=== PATIENT | male | born 1985 | race Caucasian/White ===

== ENCOUNTER 2019-03-22 19:48 | Emergency (ER) | payer OTHER ==
[2019-03-22] MEDS ORDERED: TRANEXAMIC ACID 1,000 MG in SODIUM CHLORIDE 0.9% 100 ML IV STA (20:03)
[2019-03-22] MEDS ORDERED: TRANEXAMIC ACID 1,000 MG in SODIUM CHLORIDE 0.9% 250 ML IV ONE ×2 (20:03→21:08)
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
[2019-03-22] MEDS ORDERED: DIPH,PERTUS(ACELL)TETVAC-LF 0.5 ML VIAL IM ONE (20:28)
[2019-03-22 20:30] LABS: Basophils # (A) 0.1 k/uL (0-0.2); Basophils % (A) 1 %; Eosinophils # (A) 0.1 k/uL (0-0.7); Eosinophils % (A) 0 %; HCT 39.6 % (39.0-53.0); HGB 14.8 gm/dL (13.0-17.5); Lymphocytes % (A) 8 %; MCH 31.2 pg (25.0-35.0); MCHC 37.3 g/dL (31.0-37.0); MCV 83.6 fL (80.0-100.0); Mean Platelet Volume 6.9; Monocytes # (A) 1.6 k/uL (0-1.0); Monocytes % (A) 6 %; Neutrophils % (A) 85 %; Platelet Count 240 k/uL (150-450); RBC 4.73 m/uL (4.30-5.90); RDW 13.6 % (11.5-15.5)
[2019-03-22 20:32] LABS: ALT 32 U/L (21-72); AST 100 U/L (17-59); African American GFR (CKD) 79 (>60 ml/min/1.73 sqM); Albumin 3.5 g/dL (3.5-5.0); Alcohol <10 mg/dL; Alkaline Phosphatase 87 U/L (38-126); Amylase 38 U/L (30-110); Anion Gap 10 mmol/L; Blood Urea Nitrogen 23 mg/dL (9-20); Calcium 8.1 mg/dL (8.4-10.2); Carbon Dioxide 19 mmol/L (22-30); Chloride 110 mmol/L (98-107); Glucose 150 mg/dL (74-99); Non-African American GFR(CKD) 68 (>60 ml/min/1.73 sqM); Potassium 4.7 mmol/L (3.5-5.1); Sodium 139 mmol/L (137-145); Total Bilirubin 1.2 mg/dL (0.2-1.3); Total Protein 6.1 g/dL (6.3-8.2)
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
[2019-03-22 20:41] LABS: Prothrombin Time 10.9 sec (9.0-12.0)
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
[2019-03-22 20:44] LABS: Creatine Kinase 1405 U/L (55-170)
[2019-03-22 20:45] LABS: Troponin I <0.012 ng/mL (0.000-0.034)
[2019-03-22 20:49] LABS: Partial Thromboplastin Time 21.2 sec (22.0-30.0)
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
[2019-03-22] MEDS ORDERED: ACETAMINOPHEN IV (For NPO) 1,000 MG in EMPTY BAG 1 BAG IVPB STA (21:08)
[2019-03-22] MEDS ORDERED: ONDANSETRON 4 MG/2 ML VIAL IVP STA (21:08)
[2019-03-22 21:31] VITALS: PULSE 110
[2019-03-22 21:52] VITALS: BP 115/95; RESP 20; TEMP 99.2
== END 2019-03-22 21:57 | disposition short-term general hospital (02) ==
LOC: EC 19:48
DX: S36.039A Unspecified laceration of spleen, initial encounter (principal); S32.402A Unspecified fracture of left acetabulum, initial encounter for closed fracture; S20.219A Contusion of unspecified front wall of thorax, initial encounter; S09.90XA Unspecified injury of head, initial encounter; M25.562 Pain in left knee; R00.0 Tachycardia, unspecified; R06.2 Wheezing; R06.89 Other abnormalities of breathing; Z23 Encounter for immunization; V43.53XA Car driver injured in collision with pick-up truck in traffic accident, initial encounter; Y92.410 Unspecified street and highway as the place of occurrence of the external cause; Z53.8 Procedure and treatment not carried out for other reasons
CPT/HCPCS: 36415; 86900; 86901; 80053; 82150; 82550; 82553; 83605; 83690; 84484; 85025; 85610; 85730; 86850; 86920; 80320; 72170; 73501; 71045; 72125; 70486; 70450; 71260; 74177; 90715; 99291; 96365; 96375; 96366; 90471; P9016; J2405; Q9967; 96376

== ENCOUNTER 2023-04-08 19:24 | Inpatient (IN) | payer OTHER ==
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
[2023-04-08] MEDS ORDERED: NALOXONE 0.4 MG/ML 1 ML VIAL IV PRN (20:27)
[2023-04-08] MEDS ORDERED: ACETAMINOPHEN TAB 325 MG TAB PO PRN (21:00)
--- NOTE | 2023-04-09 02:09 | P.CNPUL ---
History of Present Illness Consult date: 04/09/23 Requesting physician: Michelle White Reason for consult: pneumothorax Chief complaint: shortness of breath History of present illness: I am seeing the patient in consultation today 04/09/2023 after he was transferred from [facility] last night for acute left-sided spontaneous pneumothorax. Patient is a 37-year-old white male with limited past medical history. He does see a Dr. Chambers outpatient. Over the last 2-3 weeks the patient has has had progressively worsening shortness of breath. Denies any trauma. Denies any history of lung disease. He denies smoking history. Denies any prior history of prior pneumothorax. Denies any chest pain. Denies any recent illnesses. He did see his primary care provider on Wednesday for the shortness of breath and followed up again yesterday. Chest x-ray was performed. The patient was directed to [facility], and was discovered to have a moderate sized left-sided pneumothorax. He is status/post left-sided chest tube insertion at outside facility. Patient was then transferred to [facility]. He is currently in the emergency room. Small bore chest tube is currently connected to an atrium and to suction and -20 cm H2O. No air leak. No drainage output. Most recent chest x-ray available was scanned in from [facility], it was prior to chest tube placement. There is a small to moderate size left-sided pneumothorax. No mediastinal shift or tracheal deviation. Patient is currently lying in bed, on room air, he is fairly comfortable. Vital signs are stable. Review of Systems REVIEW OF SYSTEMS: CONSTITUTIONAL: Denies any recent significant weight loss or weight gain. EYES: Denies change in vision. EARS, NOSE, MOUTH, THROAT: Denies headaches, denies sore throat. CARDIOVASCULAR: Denies chest pain, palpitations or syncopal episodes. RESPIRATORY: Denies cough, congestion or hemoptysis. Admits shortness of breath GASTROINTESTINAL: Denies change in appetite, abdominal pain, nausea and vomiting, or diarrhea GENITOURINARY: Denies hematuria, denies infections. MUSKULOSKELETAL: Denies pain, denies swelling. INTEGUMENTARY: Denies rash, denies eczema. NEUROLOGICAL: Denies recent memory loss, no recent seizure activity. PSYCHIATRIC: Denies anxiety, denies depression. HEMATOLOGIC/LYMPHATIC: Denies anemia, denies enlarged lymph node Past Medical History Past Medical History: No Reported History History of Any Multi-Drug Resistant Organisms: None Reported Additional Past Surgical History / Comment(s): lt hip replacement, "nerve" surgery. Past Psychological History: Depression Smoking Status: Never smoker Past Alcohol Use History: Occasional Past Drug Use History: None Reported Medications and Allergies Home Medications Medication Instructions Recorded Confirmed Type Albuterol Inhaler [Ventolin Hfa 2 puff INHALATION RT-Q6H PRN 04/08/23 04/08/23 History Inhaler] FLUoxetine HCL [PROzac] 20 mg PO DAILY 04/08/23 04/08/23 History predniSONE [Deltasone] See Taper PO DIRECTED 04/08/23 04/08/23 History Allergies Allergy/AdvReac Type Severity Reaction Status Date / Time No Known Allergies Allergy Verified 04/08/23 20:29 Physical Exam Vitals: Vital Signs Temp Pulse Resp BP Pulse Ox 04/08/23 22:34 81 20 141/80 96 04/08/23 20:03 73 20 153/82 97 04/08/23 19:30 98.2 F 67 18 137/74 97 Intake and Output 04/08/23 04/08/23 04/09/23 14:59 22:59 06:59 Other: Weight 124.738 kg GENERAL EXAM: Alert, 37-year-old white male, obese , comfortable in no apparent distress. HEAD: Normocephalic and atraumatic EYES: Normal reaction of pupils, equal size. NOSE: Clear with pink turbinates. THROAT: No erythema or exudates. NECK: No masses, no JVD. CHEST: No chest wall deformity. Left-sided chest tube is connected to a TRAM and suction at -20 cm H2O. No air leak LUNGS: Equal air entry with no crackles, wheeze, rhonchi or dullness. On room air. No conversational dyspnea or accessory muscle use.. CVS: S1 and S2 normal with no audible murmur, regular rhythm. No extra heart sounds ABDOMEN: No hepatosplenomegaly, active bowel sounds, no guarding or rigidity. SPINE: No scoliosis or deformity SKIN: No rashes CENTRAL NERVOUS SYSTEM: No focal deficits, tone is normal in all 4 extremities. EXTREMITIES: There is no peripheral edema, clubbing, or cyanosis. Peripheral pulses are intact. Results - Laboratory Findings CBC and BMP: 04/09/23 05:44 04/09/23 05:44 - Diagnostic Findings Chest x-ray: image reviewed Assessment and Plan Assessment: Acute spontaneous left-sided pneumothorax, status/post left-sided chest tube placement at outside facility Acute dyspnea, secondary to above Morbid obesity, with a BMI of 45.8 kg/m Plan: Patient is currently on room air, in no acute distress. Only chest x-ray available shows a [id number] size left-sided pneumothorax. No me diastinal shift or tracheal deviation. I do not see any radiopaque chest tube markings on this image. I did confirm that this was scanned in from [facility] prior to chest tube placement. We will obtain repeat chest x-ray. The tube itself appears to be secured on the left chest wall. Chest tube is connected to an atrium and suction at -20 cm H2O. no air leak. We will give this patient an incentive spirometer. Pain is reportedly well controlled. Labs are pending. We will continue to follow. I have personally seen and examined the patient, performed the documentation and the assessment and plan as written. Number of minutes spent on the visit:20 With the DIRECT MARKETING COORDINATOR. The patient was seen and evaluated. The patient is doing extremely well. He is on room air oxygen. No issues with pain. I do not see any air leak and the pleural VAC. I put his to to waterseal. He has a pigtail catheter that was inserted in an outside hospital. He is doing extremely well. He is using the incentive spirometer. He is a nonsmoker. Chest x-ray was reviewed and there is no evidence of any pneumothorax. Repeat chest x-ray tomorrow and further recommendations are to follow. This is his first and only episode. The patient was having significant cough and which probably contributed to his pneumothorax. This is a spontaneous pneumothorax. Evaluation was done in more than 30 minutes. Time with Patient: Greater than 30
--- NOTE | 2023-04-09 02:32 | P.HPIM ---
History of Present Illness H&P Date: 04/08/23 Patient is a 37-year-old male with no known PMH who presented to the emergency room was transferred from [facility] where he had presented for shortness of breath. Patient reports he had sudden onset of shortness of breath 3 weeks ago which had persisted. 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 He was prescribed an albuterol inhaler for suspected asthma by his PCP with no relief. CT chest without contrast was performed showing a 40% left sided pneumothorax with right lung being unremarkable. The patient had a chest tube placed with subsequent chest x-ray showing minimal residual left sided apical pneumothorax. He was subse quently transferred to [facility] emergency department for further management. The patient reports feeling essentially at his baseline at the time of interview. Patient denied recent trauma, falls, or travel. Denied any additional shortness of breath, chest discomfort, fever, chills, cough, nausea, vomiting, abdominal pain, diarrhea. Patient denied any personal or family history of pneumothorax. The patient's laboratory evaluation from [facility] was reviewed with WBC count 8.7, hemoglobin 16.3, platelet count 192, sodium 138, potassium 4.2, BUN 21, creatinine 0.9, glucose 140, d-dimer 0.25. ED documentation reviewed and case discussed with ED provider. Review of systems: Pertinent positives and negatives as discussed in HPI, a complete review of systems was performed and all other systems are negative. Physical examination: Vital signs reviewed General: non toxic, no distress, appears at stated age, morbidly obese Derm: no unusual rashes/lesions, warm Head: atraumatic, normocephalic, symmetric Eyes: EOMI, no lid lag, anicteric sclera, pupils equal round reactive to light ENT: Nose and ears atraumatic Neck: No cervical lymphadenopathy, trachea midline, supple Mouth: no lip lesion, mucus membranes moist Cardiovascular: S1S2 reg, no murmur, positive dorsalis pedis pulse bilateral, no edema Lungs: CTA bilateral, no rhonchi, no rales, no accessory muscle use, left-sided chest tube in place Abdominal: soft, nontender to palpation, no guarding Ext: muscle strength 5 out of 5 in all 4 extremities grossly, no gross muscle atrophy, no contractures, Neuro: CN II-XI grossly intact, no gross focal neuro deficits Psych: Alert, oriented, appropriate affect Assessment: Spontaneous pneumothorax status post left-sided chest tube placement Hyperglycemia Imaging: CT chest without contrast was performed showing a 40% left sided pneumothorax with right lung being unremarkable. Chest x-ray following chest tube placement revealed minimal residual pneumothorax. Data Review: The patient's laboratory evaluation from [facility] was reviewed with WBC count 8.7, hemoglobin 16.3, platelet count 192, sodium 138, potassium 4.2, BUN 21, creatinine 0.9, glucose 140, d-dimer 0.25. Plan: Pulmonary consulted Check A1c levels Repeat chest x-ray ordered Cardiac monitoring DVT prophylaxis: Lovenox subcu The patient is admitted with an anticipated less than 2 midnight stay for evaluation of pneumothorax CODE STATUS: Full Code Discussed with: Patient Anticipated discharge place: Home Past Medical History Past Medical History: No Reported History History of Any Multi-Drug Resistant Organisms: None Reported Additional Past Surgical History / Comment(s): lt hip replacement, "nerve" s urgery. Past Psychological History: Depression Smoking Status: Never smoker Past Alcohol Use History: Occasional Past Drug Use History: None Reported Medications and Allergies Home Medications Medication Instructions Recorded Confirmed Type Albuterol Inhaler [Ventolin Hfa 2 puff INHALATION RT-Q6H PRN 04/08/23 04/08/23 History Inhaler] FLUoxetine HCL [PROzac] 20 mg PO DAILY 04/08/23 04/08/23 History predniSONE [Deltasone] See Taper PO DIRECTED 04/08/23 04/08/23 History Allergies Allergy/AdvReac Type Severity Reaction Status Date / Time No Known Allergies Allergy Verified 04/08/23 20:29 Physical Exam Vitals: Vital Signs Temp Pulse Resp BP Pulse Ox 04/08/23 22:34 81 20 141/80 96 04/08/23 20:03 73 20 153/82 97 04/08/23 19:30 98.2 F 67 18 137/74 97 Intake and Output 04/08/23 04/08/23 04/09/23 14:59 22:59 06:59 Other: Weight 124.738 kg
[2023-04-09 06:09] LABS: Basophils % (A) 0 %; Eosinophils # (A) 0.1 k/uL (0-0.7); Eosinophils % (A) 1 %; HCT 44.4 % (39.0-53.0); HGB 15.2 gm/dL (13.0-17.5); Lymphocytes # (A) 3.4 k/uL (1.0-4.8); Lymphocytes % (A) 33 %; MCH 29.1 pg (25.0-35.0); MCHC 34.1 g/dL (31.0-37.0); MCV 85.4 fL (80.0-100.0); Mean Platelet Volume 8.3; Monocytes # (A) 0.8 k/uL (0-1.0); Monocytes % (A) 7 %; Neutrophils # (A) 5.9 k/uL (1.3-7.7); Neutrophils % (A) 57 %; Platelet Count 171 k/uL (150-450); RBC 5.21 m/uL (4.30-5.90); RDW 13.5 % (11.5-15.5); WBC 10.3 k/uL (3.8-10.6)
[2023-04-09 06:22] LABS: African American GFR (CKD) >90 (>60 ml/min/1.73 sqM); Anion Gap 8 mmol/L; Blood Urea Nitrogen 20 mg/dL (9-20); Calcium 8.6 mg/dL (8.4-10.2); Carbon Dioxide 25 mmol/L (22-30); Chloride 107 mmol/L (98-107); Glucose 88 mg/dL (74-99); Non-African American GFR(CKD) >90 (>60 ml/min/1.73 sqM); Sodium 140 mmol/L (137-145)
--- NOTE | 2023-04-09 08:48 | XR ---
EXAMINATION TYPE: XR chest 1V portable DATE OF EXAM: 04/09/2023 Comparison: 04/08/2023 Clinical History: 37-year-old male left sided pneumothorax Findings: Heart upper limits of normal in size. Aorta and pulmonary vasculature within normal limits. Some stra ndy atelectasis in the lower lungs. No appreciable pneumothorax on the current study. Impression: The previous left pneumothorax appears to have resolved. There are some hypoventilatory changes prese nt.
[2023-04-09] MEDS: ENOXAPARIN 40 MG/0.4 ML SYRINGE SQ SCH (09:12)
[2023-04-09] MEDS ORDERED: ALBUTEROL NEBULIZED 2.5 MG/3 ML INHALATION PRN (18:14)
--- NOTE | 2023-04-09 18:16 | P.PN ---
Subjective Progress Note Date: 04/09/23 Hospital course: Patient is a pleasant 37-year-old male with a past medical history of asthma and depression. He was transferred to our facility from [facility] where he initially presented for shortness of breath. At [facility] patient underwent a CT chest which reportedly revealed a 40% left-sided pneumothorax. A chest tube was placed and a repeat check echo a completed reportedly showing minimal residual left-sided apical pneumothorax. Patient was then transferred via EMS to our facility for further management including admission and evaluation by public speaking professor. Upon arrival to our facility, patient underwent full evaluation. Vital signs completed showing blood pressure 137/74, heart rate 67, respiratory rate 18, temp 98.2F, SpO2 is 97% on room air. Patient was admitted under our services with consultation to pulmonology. Physical exam: Vital signs reviewed and stable. General: Nontoxic, no distress and appears stated age. Derm: Skin warm and dry, normal coloration for ethnicity. Head: Atraumatic, normocephalic and symmetric. Eyes: EOMs intact, no lid lag, and anicteric sclera Mouth: no lip lesions, mucus membranes moist Cardiovascular: regular rate and rhythm with normal S1S2, no murmur, positive posterior tibial pulses bilaterally, and cap refill < 2 seconds. Lungs: Respirations even, regular, and unlabored on room air. Lungs CTA bilaterally, no rhonchi, no rales, no wheezing, and no accessory muscle usage. Left-sided chest tube in place. Abdominal: soft, nontender to palpation, no guarding, no appreciable organomegaly Ext: ROM intact. No gross muscle atrophy, no edema, no contractures Neuro: Speech clear, face symmetrical and CN II-XII grossly intact with no noted focal neuro deficits Psych: Alert and oriented to person, place, time, and situation. Appropriate and pleasant affect. Assessment and Plan of Care: Spontaneous pneumothorax Asthma without acute exacerbation Depression -Pulmonology following, reviewed documentation in chart. -Patient to remain on continuous telemetry monitoring with close monitoring of vital signs. -Home medications reviewed and reordered. Patient to continue with albuterol inhaler 2 puffs every 6 hours as needed for wheezing and/or shortness of breath along with Prozac 20 mg daily. -Repeat chest x-ray. Imaging reviewed: Repeat chest x-ray completed this morning reviewed, radiology report showing resolution of previous left pneumothorax. Labs completed and reviewed. CBC and BMP were unremarkable. CODE STATUS: Full code DVT prophylaxis: Lovenox Anticipated discharge date: Likely 24-[address]: Home Patient was seen independently by Nurse Pracitioner. This document was prepared using [employer] dictation software. Please allow for errors in mobile ui developer, while rare they do occur. Ashwin Cloud, RESIDENCY PROGRAM COORDINATOR rendered care for this patient independently, reviewed the findings and plan as documented in the note above. I did not physically speak with or examine the patient on this date. Objective - Vital Signs Vital signs: Vital Signs Temp 97.6 F 04/09/23 06:07 Pulse 53 L 04/09/23 06:07 Resp 15 04/09/23 06:07 BP 140/83 04/09/23 06:07 Pulse Ox 98 04/09/23 06:07 FiO2 Intake & Output 04/08/23 04/09/23 04/09/23 18:59 06:59 18:59 Weight 124.738 kg - Labs CBC & Chem 7: 04/09/23 05:44 04/09/23 05:44
[2023-04-10 02:57] VITALS: TEMP 97.6
[2023-04-10 07:32] VITALS: BP 145/92; PULSE 63; RESP 14
--- NOTE | 2023-04-10 07:57 | XR ---
EXAMINATION TYPE: XR chest 1V DATE OF EXAM: 04/10/2023 COMPARISON: 04/09/2023 HISTORY: 37-year-old male pneumothorax TECHNIQUE: Single frontal view of the chest is obtained. FINDINGS: Heart upper limits of normal in size. Hazy densities related to overlying soft tissue and portable te chnique. No recurrence of the patient's previous left-sided pneumothorax. No consolidation or pleural effusion. IMPRESSION: No recurrence of the patient's previous left-sided pneumothorax.
[2023-04-10] MEDS: ENOXAPARIN 40 MG/0.4 ML SYRINGE SQ SCH (08:37)
[2023-04-10] MEDS ORDERED: FLUoxetine HCL 20 MG CAP PO SCH (09:00)
--- NOTE | 2023-04-10 12:48 | XR ---
EXAMINATION TYPE: XR chest 1V portable DATE OF EXAM: 04/10/2023 Comparison: 04/10/2023 Clinical History: 37-year-old male pneumothorax Findings: Heart normal size. Suspect some strandy atelectasis in the lower lungs. Otherwise, no consolidation o r pleural effusion. No recurrent pneumothorax is identified on the left. Impression: No recurrent pneumothorax identified on the left.
--- NOTE | 2023-04-10 14:53 | P.DS ---
Providers Date of admission: 04/09/23 12:23 Expected date of discharge: 04/10/23 Attending physician: Mar Cui MD Consults: 04/08/23 20:27 Consult Physician Urgent Consulting Provider: Melissa Olivarez Consult Reason/Comments: spontaneous ptx, s/p chest tube Do you want consulting provider notified?: Yes Primary care physician: Kieran Mcghee [facility] Course: Discharge Diagnosis: Spontaneous pneumothorax, left Asthma without acute exacerbation Depression Class III obesity with BMI 45.8 Hospital Course: Patient is a pleasant 37-year-old male with a past medical history of asthma and depression. He was transferred to our facility from [facility] where he initially presented for shortness of breath. At [facility] patient underwent a CT chest which reportedly revealed a 40% left-sided pneumothorax. A pigtailed chest tube was placed and a repeat x-ray showed minimal residual left-sided apical pneumothorax. He was admitted to our institution for evaluation by gun synchronizer. Upon arrival to our facility, patient underwent full evaluation. Vital signs completed showing blood pressure 137/74, heart rate 67, respiratory rate 18, temp 98.2F, SpO2 is 97% on room air. So unremarkable. Chest x-ray showed complete expansion of the left lung. Patient had no air leak in his chest tube was taken to water seal on 04/09/23. Patient had no air leak on water seal as well as no movement of water within the chamber with inhalation or exhalation. X-ray on the morning of 04/10 showed no signs of pneumothorax as well as no S2 noted within the chest wall cavity. His chest tube was removed by myself and repeat CXR was preformed 1.5 hours later and was reviewed by myself without recurrence of pneumothorax. Patient was determined stable for discharge home. Follow-up: Dr. Mcghee. Recommend repeat CXR on follow-up. Patient seen and examined at bedside. No chest pain, SOB, or nausea Vital signs reviewed and stable. General: nontoxic, no distress, appears at stated age Cardiovascular: S1S2 reg, no murmur, positive posterior tibial pulse bilateral, Lungs: Decreased bs bilateral, no rhonchi, no rales , no accessory muscle use Abdominal: soft, nontender to palpation, no guarding, no appreciable organomegaly Ext: no gross muscle atrophy, no edema b/l lower extremities, no contractures Neuro: CN II-XI grossly intact, no focal neuro deficits Psych: Alert, oriented, appropriate affect A total of 32 minutes of time were spent preparing this complex discharge summary. Patient was discharged on 04/10/23. This dictation was prepared using [employer] voice recognition software. Though every attempt is made to correct errors during dictation some may still exist. Patient Condition at Discharge: Stable Plan - Discharge Summary Discharge Rx Participant: No New Discharge Prescriptions: Continue FLUoxetine HCL [PROzac] 20 mg PO DAILY predniSONE [Deltasone] See Taper PO DIRECTED Albuterol Inhaler [Ventolin Hfa Inhaler] 2 puff INHALATION RT-Q6H PRN PRN Reason: Shortness Of Breath Discharge Medication List Albuterol Inhaler [Ventolin Hfa Inhaler] 2 puff INHALATION RT-Q6H PRN 04/08/23 [History] FLUoxetine HCL [PROzac] 20 mg PO DAILY 04/08/23 [History] predniSONE [Deltasone] See Taper PO DIRECTED 04/08/23 [History] Follow up Appointment(s)/Referral(s): Kieran Mcghee DO [Primary Care Provider] - 1-2 days Patient Instructions/Handouts: Spontaneous Pneumothorax (DC) Activity/Diet/Wound Care/Special Instructions: Activity: As tolerated Diet: regular Special Instructions: Return to the emergency with worsening shrotness of breath, chest pain, diziness. please have repeat Xray completed when you see Dr. Mcghee Discharge Disposition: HOME SELF-CARE
--- NOTE | 2023-04-10 15:57 | P.PN ---
Subjective Progress Note Date: 04/10/23 On today's evaluation of 04/10/2023, the patient is on room air oxygen. No chest pain or shortness of breath. Left-sided pigtail catheter was removed. The morning chest x-ray was negative. I think the catheter itself was out. Repeat chest x-ray was done after removing the catheter and it showed no ev idence of any pneumothorax. The patient is ambulating. Oxygen within normal limits. Objective - Vital Signs Vital signs: Vital Signs Temp 97.6 F 04/10/23 07:27 Pulse 63 04/10/23 07:27 Resp 14 04/10/23 07:27 BP 145/92 04/10/23 07:27 Pulse Ox 95 04/10/23 07:27 FiO2 Intake & Output 04/09/23 04/10/23 04/10/23 18:59 06:59 18:59 Intake Total 920 240 Output Total 600 Balance 920 -360 Intake: Oral 920 240 Output: Urine 600 Other: # Voids 2 3 - Exam The patient appeared well nourished and normally developed. Vital signs as documented. Head exam is unremarkable. No scleral icterus or corneal arcus n oted. Neck is without jugular venous distension, thyromegaly, or carotid bruits. Carotid upstrokes are brisk bilaterally. Lungs are clear to auscultation and percussion. Cardiac exam reveals the PMI to be normally sized and situated. Rhythm is regular. First and second heart sounds normal. No murmurs, rubs or gallops. Abdominal exam reveals normal bowel sounds, no masses, no organomegaly and no aortic enlargement. Extremities are nonedematous and both femoral and pedal pulses are normal. - Labs CBC & Chem 7: 04/09/23 05:44 04/09/23 05:44 Assessment and Plan Assessment: Acute spontaneous left-sided pneumothorax, status/post left-sided chest tube placement at outside facility, recovered Acute dyspnea, secondary to above, recovered Morbid obesity, with a BMI of 45.8 kg/m Plan: Left-sided pigtail catheter was removed Subsequent chest x-ray showed no evidence of pneumothorax The patient will be discharged home
== END 2023-04-10 14:55 | disposition home or self-care (01) | DRG 200 ==
LOC: EC 19:24 → SUPCPDRO 19:24 → 6NMEDSUR 20:27 → OBSVTOIN 04-09 12:23
PROVIDERS: ADMIT Internal Medicine; ATTEND Internal Medicine
DX: J93.83 Other pneumothorax (principal); Z68.42 Body mass index [BMI] 45.0-49.9, adult; E66.01 Morbid (severe) obesity due to excess calories; Z28.310 Unvaccinated for COVID-19; J45.909 Unspecified asthma, uncomplicated; F32.A Depression, unspecified; Z79.899 Other long term (current) drug therapy; Z96.642 Presence of left artificial hip joint
CPT/HCPCS: 71045; 80048; 83036; 85025; 99285

== ENCOUNTER → 2023-04-08 | Outpatient (CLI) | payer OTHER ==
--- NOTE | 2023-04-08 11:25 | XR ---
EXAMINATION TYPE: XR chest 2V DATE OF EXAM: 04/08/2023 COMPARISON: 03/22/2019 HISTORY: Chest pain TECHNIQUE: Frontal and lateral views of the chest are obtained. FINDINGS: There is no focal air space opacity. No evidence for pneumothorax. No pleural effusion. The cardiac silhouette size is within normal limits. The osseous structures are grossly intact. IMPRESSION: 1. No acute cardiopulmonary process.
== END | disposition home or self-care (01) ==
LOC: RADXRYALE 11:00
PROVIDERS: ATTEND Physician Assistant
DX: R06.02 Shortness of breath (principal); R06.2 Wheezing
CPT/HCPCS: 71046